=== PATIENT | male | born 1985 | race Caucasian/White ===

== ENCOUNTER 2017-01-05 16:40 | Emergency (ER) | payer MEDICAID, OTHER ==
[2017-01-05 16:57] LABS: BILIRUBIN,URINE NEGATIVE (NEGATIVE)
[2017-01-05 17:02] LABS: UA w/ MICROSCOPIC CHARGE YES
[2017-01-05] MEDS ORDERED: KETOROLAC 60 MG/2 ML VIAL IVP STA (17:02)
--- NOTE | 2017-01-05 17:03 | ED Physician Documentation ---
History of Present Illness - Stated complaint Stated Complaint: LOW BACK PX - Chief complaint Chief Complaint: Back Pain - History obtained from History obtained from: Patient - History of Present Illness Timing: Today Pain level max: 7 Pain level now: 5 Improved by: nothing Worsened by: nothing - Additonal information Additional information: R flank pain today. Feels like prior renal stone 3-5 years ago. Review of Systems Ten Systems: 10 systems reviewed and negative Constitutional: denies: Fever, Chills Nose: denies: Rhinorrhea / runny nose, Congestion Cardiac: denies: Chest pain / pressure Respiratory: denies: Cough GI: denies: Nausea, Vomiting, Diarrhea : denies: Dysuria, Frequency Skin: denies: Rash Musculoskeletal: denies: Neck pain, Back pain Neurologic: denies: Headache PD PAST MEDICAL HISTORY - Past Medical History Past Medical History: Yes Other Past Medical History: Kidney stone, back fracture - Past Surgical History Past Surgical History: Yes - Present Medications Home Medications: Ambulatory Orders Medication Instructions Recorded Confirmed Hydrocodone/Acetaminophen 1 - 2 each PO Q6H PRN #14 tablet 01/05/17 [Hydrocodon-Acetaminophen 5-325] Ibuprofen [Motrin] 800 mg PO Q8H PRN #30 tablet 01/05/17 - Allergies Allergies/Adverse Reactions: Allergies Allergy/AdvReac Type Severity Reaction Status Date / Time Penicillins Allergy Unknown Verified 09/07/15 17:54 - Social History Does the pt smoke?: Yes Smoking Status: Light tobacco smoker Does the pt drink ETOH?: Yes Does the pt have substance abuse?: No - Immunizations Immunizations are current?: No PD ED PE NORMAL - Vitals Vital signs reviewed: Yes - General General: Alert and oriented X 3, No acute distress - HEENT HEENT: Moist mucous membranes - Neck Neck: Supple, no meningeal sign - Cardiac Cardiac: RRR, Strong equal pulses - Respiratory Respiratory: No respiratory distress, Clear bilaterally - Abdomen Abdomen: Soft, Non tender, Non distended - Back Back: No CVA TTP, No spinal TTP - Derm Derm: Warm and dry - Neuro Neuro: Alert and oriented X 3 - Psych Psych: Normal mood, Normal affect Results - Vitals Vitals: Vital Signs - 24 hr 01/05/17 01/05/17 01/05/17 16:43 17:39 18:55 Temperature 36.3 C L Heart Rate 78 70 66 Respiratory 18 16 16 Rate Blood Pressure 125/87 H 132/73 H 133/73 H O2 Saturation 98 97 96 Oxygen O2 Source Room air - Labs Labs: Laboratory Tests 01/05/17 01/05/17 01/05/17 16:50 17:12 17:12 WBC 7.3 RBC 4.69 L Hgb 14.8 Hct 43.6 MCV 92.8 MCH 31.5 H MCHC 34.0 RDW 13.3 Plt Count 168 MPV 9.7 Neut # 4.1 Lymph # 2.2 [place] # 0.7 Eos # 0.3 Baso # 0.1 Absolute Nucleated RBC 0.00 Nucleated RBCs 0.0 Sodium 140 Potassium 3.9 Chloride 107 Carbon Dioxide 26 Anion Gap 7.0 BUN 20 Creatinine 1.1 Estimated GFR (MDRD) 79 L Glucose 108 H Calcium 9.2 Total Bilirubin 0.5 AST 41 ALT 92 H Alkaline Phosphatase 63 Total Protein 6.9 Albumin 4.3 Globulin 2.6 Albumin/Globulin Ratio 1.7 Lipase 19 L Urine Color YELLOW Urine Clarity CLEAR Urine pH 6.0 Ur Specific [place] 1.025 Urine Protein NEGATIVE Urine Glucose (UA) NEGATIVE Urine Ketones NEGATIVE Urine Occult Blood MODERATE H Urine Nitrite NEGATIVE Urine Bilirubin NEGATIVE Urine Urobilinogen 0.2 (NORMAL) Ur Leukocyte Esterase NEGATIVE Urine RBC 6-10 H Urine WBC 0-3 Ur Squamous Epith Cells NONE SEEN Urine Bacteria None Seen Ur Microscopic Review INDICATED Urine Culture Comments NOT INDICATED - Rads (name of study) CT abd/pelvis Radiology: Prelim report reviewed, EMP read contemporaneously, See rad report ( Mild right hydronephrosis and hydroureter. Right ureterovesicular junction calculus measuring 4 x 3 mm. 2. Somewhat ill-defined rounded low density seen at the upper pole right kidney measuring 1.6 x 1.5 cm, Hounsfield units of 14, could be a renal cyst but this is not fully characterize. A routine renal ultrasound could further evaluate. ) PD MEDICAL DECISION MAKING - ED course Complexity details: reviewed results, re-evaluated patient, considered differential, d/w patient ED course: Patient is a 31-year-old male who presents to the emergency department with right flank pain. Found to have a right UVJ calculus, 4 x 3 mm. This should pass. Pain resolved in the emergency department. No evidence of UTI. He is well-appearing, nontoxic. Afebrile. Will prescribe pain medication for home and follow-up with his doctor. Patient counseled regarding signs and symptoms for which I believe and urgent re-evaluation would be necessary. Patient with good understanding of and agreement to plan and is comfortable going home at this time This document was made in part using voice recognition software. While efforts are made to proofread this document, sound alike and grammatical errors may occur. Departure - Departure Disposition: 01 Home, Self Care Clinical Impression: Ureteral stone Condition: Good Instructions: ED Stone Renal W Colic Follow-Up: your,doctor in 1 week [Other] Prescriptions: Hydrocodone/Acetaminophen [Hydrocodon-Acetaminophen 5-325] 1 - 2 each PO Q6H PRN #14 tablet PRN Reason: pain Ibuprofen [Motrin] 800 mg PO Q8H PRN #30 tablet PRN Reason: PAIN &/OR FEVER Comments: Return if you worsen, especially if you develop fevers or uncontrolled pain. Do not drink alcohol or drive while on narcotic pain medicine. Note that many narcotic pain relievers also contain tylenol/acetaminophen. Please ensure that your total dose of acetaminophen from all sources does not exceed 3 grams (3000mg) per day. You may constipated on this medication, take a stool softener such as "Colace" twice a day while you are on it. Also recommend a bcuy-ueo-ugthulq laxative such as senna or MiraLAX any day that you do not have a bowel movement. If you received narcotic pain medication in the emergency department, do not drive or operate machinery for the next 24 hours. Discharge Date/Time: 01/05/17 18:55
[2017-01-05] MEDS ORDERED: KETOROLAC 60 MG/2 ML VIAL ONE (17:07)
[2017-01-05 17:21] LABS: UR CULTURE IF IND NOT INDICATED; WBC,URINE 0-3 /HPF (0-3)
[2017-01-05 17:23] LABS: BASOPHILS # (AUTO) 0.1 10^3/uL (0.0-0.1); EOSINOPHILS # (AUTO) 0.3 10^3/uL (0.0-0.7); EOSINOPHILS % (AUTO) 3.9 %; HCT - HEMATOCRIT 43.6 % (42.0-52.0); HGB - HEMOGLOBIN 14.8 g/dL (14.0-18.0); LYMPHOCYTES # (AUTO) 2.2 10^3/uL (1.5-3.5); LYMPHOCYTES % (AUTO) 29.6 %; MEAN CORPUSCULAR HEMOGLOBIN 31.5 pg (27.0-31.0); MEAN CORPUSCULAR VOLUME 92.8 fL (80.0-94.0); MEAN PLATELET VOLUME 9.7 fL (7.4-11.4); MONOCYTES # (AUTO) 0.7 10^3/uL (0.0-1.0); NEUTROPHILS # (AUTO) 4.1 10^3/uL (1.5-6.6); NEUTROPHILS % (AUTO) 55.5 %; RED BLOOD COUNT 4.69 10^6/uL (4.70-6.10); RED CELL DISTRIBUTION WIDTH 13.3 % (12.0-15.0); UNCORRECTED WHITE BLOOD COUNT 7.3 x10^3/uL; WHITE BLOOD COUNT 7.3 x10^3/uL (4.8-10.8)
[2017-01-05 17:33] LABS: ALBUMIN/GLOBULIN RATIO 1.7 (1.0-2.2); BILIRUBIN,TOTAL 0.5 mg/dL (0.2-1.0); CALCIUM 9.2 mg/dL (8.5-10.3); CREATININE 1.1 mg/dL (0.6-1.2); POTASSIUM 3.9 mmol/L (3.5-5.0); TOTAL PROTEIN 6.9 g/dL (6.7-8.2)
--- NOTE | 2017-01-05 18:17 | CT Preliminary Report ---
Exam: CT Abdomen/Pelvis W/O IMPRESSION: 1. Mild right hydronephrosis and hydroureter. Right ureterovesicular junction calculus measuring 4 x 3 mm. 2. Somewhat ill-defined rounded low density seen at the upper pole right kidney measuring 1.6 x 1.5 c m, Hounsfield units of 14, could be a renal cyst but this is not fully characterize. A routine renal ultrasound could further evaluate. [facility] SITE ID: [id number]
--- NOTE | 2017-01-05 18:20 | CT Report ---
EXAM: CT ABDOMEN AND PELVIS (CT KUB) EXAM DATE: 01/05/2017 05:28 PM. CLINICAL HISTORY: Right flank pain, history of renal stones. COMPARISONS: None. TECHNIQUE: Routine axial helical CT imaging was performed through the abdomen and pelvis without IV c ontrast. Reconstructions: Coronal and sagittal. In accordance with CT protocol optimization, one or more of the following dose reduction techniques w ere utilized for this exam: automated exposure control, adjustment of mA and/or KV based on patient s ize, or use of iterative reconstructive technique. FINDINGS: Lung Bases: No acute findings. Right Kidney/Ureter: Mild right hydronephrosis and hydroureter. Right ureterovesicular junction calcu berenice measuring 4 x 3 mm. Somewhat ill-defined rounded low density seen at the upper pole right kidney measuring 1.6 x 1.5 cm, Hounsfield units of 14, could be a renal cyst but this is not fully characterize. A routine renal ult rasound could further evaluate. Left Kidney/Ureter: No stones, hydronephrosis, or hydroureter. No perinephric fat stranding. Other Solid Organs: Noncontrast images of the solid organs are grossly unremarkable. Gallbladder/Bile Ducts: Unremarkable. Peritoneal Cavity: No free fluid, free air or yanely adenopathy. Bowel is grossly unremarkable. Normal appendix. Pelvic Organs: See above. Otherwise, Noncontrast images of the visualized pelvic organs are unremarka ble. Vasculature: Unremarkable. No acute bone findings. IMPRESSION: 1. Mild right hydronephrosis and hydroureter. Right ureterovesicular junction calculus measuring 4 x 3 mm. 2. Somewhat ill-defined rounded low density seen at the upper pole right kidney measuring 1.6 x 1.5 c m, Hounsfield units of 14, could be a renal cyst but this is not fully characterize. A routine renal ultrasound could further evaluate. [facility] Referring Provider Line: [phone] SITE ID: [id number]
[2017-01-05 18:57] VITALS: BP 133/73
== END 2017-01-05 18:55 | disposition home or self-care (01) ==
LOC: ED 16:40
DX: N13.2 Hydronephrosis with renal and ureteral calculous obstruction (principal); Z87.442 Personal history of urinary calculi; F17.200 Nicotine dependence, unspecified, uncomplicated
CPT/HCPCS: 36415; 74176; 80053; 81001; 81003; 83690; 85025; 87086; 96374; 99283; 99284

== ENCOUNTER 2020-06-21 21:09 | Outpatient (CLI) | payer OTHER ==
--- OUTSIDE RECORDS SUMMARY | 2020-06-29 00:28 | EXTERNAL MEDICAL SUMMARY RPT | Continuity of Care Document ---
:1985 Demographics Phone Unavailable Preferred Language Unknown Marital Status Unknown Islam Affiliation Unknown Race Unknown Ethnic Group Unknown Author Organization [employer] Address [address] [place] [address] Phone Support Name Relationship Address Phone [facility] Unavailable Unavailable Unavailable Problems date description facility 2017-01-05 16:40 NICOTINE DEPENDENCE, UNSPECIFIED, [facility] UNCOMPLICATED 2017-01-05 16:40 HYDRONEPHROSIS WITH RENAL AND [facility] URETERAL CALCULOUS OBSTRUCTION 2017-01-05 16:40 RIGHT LOWER QUADRANT PAIN [facility] 2017-01-05 16:40 PERSONAL HISTORY OF URINARY [facility] CALCULI Allergies date description facility ADHESIVE \T\ TAPE [facility] ATORVASTATIN [facility] CODEINE [facility] ERYTHROMYCIN BASE [facility]E [facility] LOVASTATIN [facility] METFORMIN [facility] NIACIN [facility] CEPHALEXIN [facility] EXENATIDE [facility] INSULIN GLARGINE [facility] NO KNOWN ENVIRONMENTAL ALLERGIES [facility] PENICILLINS [facility] STATINS [facility] NO ALLERGY INFORMATION AVAILABLE [facility] RITU INHIBITORS [facility] HYDROCHLOROTHIAZIDE [facility] LISINOPRIL [facility] ROSUVASTATIN [facility] OXYCODONE-ACETAMINOPHEN [facility] Results test status date ordered by attending specimen jaspal e null F 2020-06-22 LANG.Malcolm Diaz 06-22 12:41:00 09:15:00 facility observation status value reference units lab abnor mal line notes range code [facility] F POSITIVE unknown [facility] to [facility] RN Infectio n Preventi on by Stephanie bethea MLT( CP) at 194006/24/20 .BEBE MCKENNA Faxed [facility] nt by Stephanie bethea MLT( CP) at 194006/24/20 . See separate report - Report scanned to Patient' s EMR. Testing performe d at [facility] Social History date description facility [id number]
== END 2020-06-21 21:10 | disposition home or self-care (01) ==
LOC: COV 21:09
PROVIDERS: ATTEND Family Medicine
DX: R05 Cough (principal); R06.02 Shortness of breath; M79.10 Myalgia, unspecified site; R53.83 Other fatigue; R07.0 Pain in throat; R09.81 Nasal congestion; J34.89 Other specified disorders of nose and nasal sinuses

== ENCOUNTER 2020-06-22 16:28 | Outpatient (CLI) | payer OTHER ==
--- OUTSIDE RECORDS SUMMARY | 2020-06-29 00:51 | EXTERNAL MEDICAL SUMMARY RPT | Continuity of Care Document ---
:1985 Demographics Phone Unavailable Preferred Language Unknown Marital Status Unknown Faith Affiliation Unknown Race Unknown Ethnic Group Unknown Author Organization [place] Address [address] [place] [address] Phone Support Name Relationship Address Phone [facility] Unavailable Unavailable Problems date description facility 2017-01-05 16:40 NICOTINE DEPENDENCE, UNSPECIFIED, [facility] UNCOMPLICATED 2017-01-05 16:40 HYDRONEPHROSIS WITH RENAL AND Merged with [facility] URETERAL CALCULOUS OBSTRUCTION 2017-01-05 16:40 RIGHT LOWER QUADRANT PAIN [facility] 2017-01-05 16:40 PERSONAL HISTORY OF URINARY [facility] CALCULI Allergies date description facility ADHESIVE \T\ TAPE [facility] ATORVASTATIN [facility] CODEINE [facility] with [facility] ERYTHROMYCIN BASE Merged with [facility]E [facility] LOVASTATIN [facility]MIN [facility] NIACIN M[facility] CEPHALEXIN [facility] EXENATIDE [facility] INSULIN GLARGINE Merg[facility] with [facility] NO KNOWN ENVIRONMENTAL ALLERGIES [facility] PENICILLINS Merged with [facility] STATINS [facility] NO ALLERGY INFORMATION AVAILABLE [facility] RITU INHIBITORS Merged with [facility] HYDROCHLOROTHIAZIDE Merged with [facility] LISINOPRIL Merged with [facility] ROSUVASTATIN Merged with [facility] OXYCODONE-ACETAMINOPHEN [facility] Results test status date ordered by attending specimen jaspal e null F 2020-06-22 LANG.Malcolm Diaz 06-22 12:41:00 09:15:00 facility observation status value reference units lab abnor mal line notes range code M[facility] with [facility] F POSITIVE unknown [facility] to [facility] RN Infectio n Preventi on by Stephanie bethea MLT( CP) at 194006/24/20 .BEBE MCKENNA Faxed [facility] nt by Stephanie bethea MLT( CP) at 194006/24/20 . See separate report - Report scanned to Patient' s EMR. Testing performe d at [facility] Social History date description facility [id number]
== END 2020-06-22 16:29 | disposition home or self-care (01) ==
LOC: COV 16:28
PROVIDERS: ATTEND Family Medicine
DX: U07.1 COVID-19 (principal)